=== PATIENT | female | born 1985 | race Caucasian/White ===

== ENCOUNTER 2022-04-03 11:38 | Day surgery (SDC) | payer BC ==
--- NOTE | 2022-03-27 09:05 | HP ---
DATE OF SURGERY: 04/03/2022 HISTORY OF PRESENT ILLNESS: The patient is a 36-year-old female who presents with complaints epigastric pain. The patient had right upper quadrant pain with some spicy and greasy food. She takes [employer] which does not help really. The patient also had some gas and diarrhea related to these symptoms. The patient had ultrasound demonstrating cholelithiasis. The patient also had gastric bypass sleeve in 2019. PAST MEDICAL HISTORY: Hypertension, anxiety, depression. PAST SURGICAL HISTORY: Gastric bypass. Two sections. ALLERGIES: NKDA. MEDICATIONS: Lisinopril, fluoxetine, oral contraceptive. FAMILY HISTORY: Diabetes, hypertension, ovarian cancer. SOCIAL HISTORY: None. REVIEW OF SYSTEMS: CONSTITUTIONAL: Denies fever or chills. CHEST: Denies shortness of breath. CVS: Denies chest pain. ABDOMEN: Reports upper abdominal pain. Denies nausea, vomiting. Reports diarrhea. Denies constipation or rectal bleeding. PHYSICAL EXAMINATION: GENERAL: No acute distress. CHEST: Nonlabored. No shortness of breath. CVS: Regular rate and rhythm. ABDOMEN: Soft. IMPRESSION: Epigastric pain and symptomatic cholelithiasis. PLAN: EGD and laparoscopic cholecystectomy with Dr. Maldonado Fine. As dictated by Petty Olmstead NP.
[~2022-04-03 11:38] MED LIST: Lactated Ringers 1,000 ML IV ONE; Sensorcaine 0.25% 10 ML ONE
[2022-04-03] MEDS ORDERED: Lactated Ringers 1,000 ML IV ONE ×2 (11:46→14:47)
[2022-04-03] MEDS ORDERED: Lactated Ringers 1,000 ML IV SCH (12:00)
[2022-04-03] MEDS ORDERED: MEFOXIN 2 GM PREMIX** 2 GM/50 ML ML IV ONE (12:10)
[2022-04-03] MEDS ORDERED: MEFOXIN 2 GM PREMIX** 2 GM/50 ML ML IV SCH (13:00)
[2022-04-03] MEDS ORDERED: Quelicin Fliptop 200 MG/10 ML ONE (13:18)
[2022-04-03] MEDS ORDERED: DIPRIVAN 200 MG/20 ML IV ONE (13:18)
[2022-04-03] MEDS ORDERED: Decadron 4 MG INJ ONE (13:18)
[2022-04-03] MEDS ORDERED: Zofran 4 MG/2 ML VIAL ONE (13:18)
[2022-04-03] MEDS ORDERED: Zemuron 100 MG/10 ML ONE (13:18)
[2022-04-03] MEDS ORDERED: SUBLIMAZE 100 MCG/2 ML ONE (13:19)
[2022-04-03] MEDS ORDERED: Versed 2 MG/2 ML Injection ONE (13:38)
[2022-04-03] MEDS ORDERED: Pre-Attached Lta Kit TP ONE (13:41)
[2022-04-03] MEDS ORDERED: OFIRMEV 100 ML IV ONE (13:41)
[2022-04-03] MEDS ORDERED: ATROPINE SULFATE 1MG ONE (14:24)
[2022-04-03] MEDS ORDERED: BRIDION 200MG/2ML IV ONE (14:31)
[2022-04-03] MEDS ORDERED: SUBLIMAZE 250 MCG/5 ML ONE (14:38)
[2022-04-03] MEDS ORDERED: APRESOLINE 20 MG/ML INJ ONE (15:04)
[2022-04-03 16:09] VITALS: O2SAT 98
[2022-04-03 16:18] VITALS: BP 127/61; PULSE 88
--- NOTE | 2022-04-04 07:46 | OP ---
SURGERY DATE/TIME: 04/03/2022 1347 PREOPERATIVE DIAGNOSES: 1) Epigastric pain, heartburn. The patient has had a gastric bypass. 2) Known cholelithiasis. Intraoperatively, she had left cholesterolosis also. POSTOPERATIVE DIAGNOSES: 1) Epigastric pain, heartburn. The patient has had a gastric bypass. 2) Known cholelithiasis. Intraoperatively, she had left cholesterolosis also. PROCEDURES: 1) Laparoscopic cholecystectomy. 2) EGD. SURGEON: Maldonado Fine M.D. ANESTHESIA: General. COMPLICATIONS: None. CONDITION: Stable. INDICATION: A patient with the above conditions. DESCRIPTION OF PROCEDURE: Taken to surgery. Dorsal supine position. Scope introduced. Pharyngoesophageal junction normal. Esophagus normal. Down to 34 cm there were vertical streaks of esophagitis. There was a circular streak of esophagitis. There was basically erosive esophagitis. She has had a gastric bypass. Her pouch was satisfactory. The scope is withdrawn. Veress needle inserted right upper quadrant. Insufflating pressure 14. Four - 5's were placed. Good visualization. There was cholesterolosis of the gallbladder. Cystic duct defined. Cystic artery defined. Both structures triply clipped and transected. Clips noted across and well approximated. Gallbladder rolled out of gallbladder fossa. The gallbladder delivered through the upper abdominal port. The field was clean and dry. CO2 was exsufflated. Skin closed with 4-0 Vicryl and Steri-Strips. The hole had not been widened past 7 and was not close.
== END 2022-04-03 16:20 | disposition home or self-care (01) ==
LOC: SDC 11:38
PROVIDERS: ATTEND Surgery
DX: K80.20 Calculus of gallbladder without cholecystitis without obstruction (principal); R10.13 Epigastric pain; Z98.84 Bariatric surgery status
CPT/HCPCS: 36415; 81025; J0330; J0360; J0461; J0694; J1100; J2250; J2405; J2704; J3010